=== PATIENT | female | born 1980 | race Caucasian/White ===

== ENCOUNTER 2016-04-27 17:28 | Observation (INO) ==
[2016-04-27] MEDS ORDERED: Aspirin 325 MG TABLET PO ONE (19:14)
--- NOTE | 2016-04-27 19:17 | Emergency Department Note ---
Disposition Clinical Impression: UTI (urinary tract infection), Foreign body in throat, Behavioral problem, Hypokalemia Disposition: Admitted As Inpatient Condition: Fair Referrals: NO,PCP [Non-Partnered Physician] - Forms: ED Satisfaction Letter, Work/School Release Time of Disposition: 23:23 General Adult HPI - General Chief complaint: ED Shortness of Breath/Dyspnea Stated complaint: breathing problems Time Seen by Provider: 04/27/16 19:10 Source: patient Mode of arrival: ambulatory Limitations: no limitations Nursing Notes Reviewed: Yes Vital Signs Reviewed: Yes - History of Present Illness HPI Narrative: This is a 35-year-old female who presents with congestion, shortness of breath, and anxiety. Patient is extremely anxious on exam and is crying. Patient states she does not know why she is anxious. Patient states she is having some pleuritic type chest pain last night but that is gone this morning. Patient states she went to work today and felt worse. Patient denies any alcohol or drug use. Patient denies chance of . Onset (ago): day(s) (1) Pain Scale: 6 - Related Data Home Medications Medication Instructions Recorded Confirmed Dextroamphetamine/Amphetamine 30 mg PO BID 01/04/15 01/04/15 [Adderall 30 mg Tablet] Escitalopram [Lexapro] 20 mg PO DAILY 01/04/15 01/04/15 Previous Rx's Medication Instructions Recorded Benzonatate [Tessalon] 200 mg PO TID PRN #14 capsule 03/20/16 Naproxen [Naprosyn] 500 mg PO BID PRN #20 tablet 03/20/16 Sulfamethoxazole/Trimeth DS 2 each PO BID #40 tablet 03/20/16 [Bactrim DS] Allergies Allergy/AdvReac Type Severity Reaction Status Date / Time No Known Allergies Allergy Verified 01/04/15 11:48 All systems ED: reviewed and negative except as stated. Constitutional: Denies: fever, chills, weakness, weight change Eyes: Denies: eye pain, eye discharge, vision change ENT ED: Reports: congestion. Denies: ear pain, throat pain, dental pain, hearing loss, epistaxis, dysphagia Cardiovascular: Reports: chest pain. Denies: palpitations, dyspnea on exertion , edema, syncope Respiratory: Reports: cough. Denies: dyspnea, wheezes, hemoptysis, stridor Gastrointestinal: Denies: abdominal pain, nausea, vomiting, diarrhea, constipation, hematemesis, melena, hematochezia Genitourinary: Denies: dysuria, frequency, hematuria, discharge Musculoskeletal: Reports: myalgia. Denies: back pain, neck pain, arthralgia Integumentary: Denies: rash, abrasion, lesions Neurological: Denies: headache, weakness, numbness, paresthesias, confusion, abnormal gait, vertigo Psychiatric: Denies: anxiety, depression, suicidal thoughts, homicidal thoughts , auditory hallucinations, visual hallucinations Endocrine: Denies: fatigue Hematological/Lymphatic: Denies: easy bleeding, easy bruising Allergic/Immunologic: Denies: facial swelling, urticaria Past Medical History - Past Medical History Attestation: Yes The following information was validated with the patient. Source: patient Medical history: Reports: other Surgical history: Reports: cholecystectomy Psychiatric history: Reports: anxiety, ADHD MEDICAL OFFICE REPRESENTATIVE history: Reports: bilateral tubal ligation - Social History Smoking Status: Current every day smoker Smokeless Tobacco Status: No Alcohol use: Reports: none Drug use: Reports: none Physical Exam - General Limitations: no limitations General appearance: alert, anxious - Head Head exam: atraumatic, normocephalic, normal inspection - Eye Eye exam: Present: normal appearance, PERRL, EOMI - ENT ENT exam: normal exam, normal oropharynx, mucous membranes moist - Expanded ENT Exam External ear exam: Present: normal external inspection Mouth exam: Present: normal external inspection Teeth exam: Present: normal inspection Throat exam: Present: normal inspection - Neck Neck exam: Present: normal inspection, full ROM, trachea midline - Chest Chest inspection: Present: normal inspection, symmetric chest wall rise - Respiratory Respiratory exam: Present: wheezes, other (rhonchi) - Cardiovascular Cardiovascular exam: Present: regular rate, normal rhythm, normal heart sounds - Abdominal Exam Abdominal exam: Present: soft, Non-Tender. Absent: tenderness, distention, guarding, rebound, rigidity - Extremities Exam Extremities exam: Present: normal inspection, full ROM. Absent: tenderness, pedal edema - Expanded Upper Extremity Exam Shoulder exam: Present: normal inspection, full ROM Arm exam: Present: normal inspection, full ROM Elbow exam: Present: normal inspection, full ROM Forearm/Wrist exam: Present: normal inspection, full ROM Hand exam: Present: normal inspection, full ROM Vascular exam: Normal: capillary refill, radial pulse - Expanded Lower Extremity Exam Hip/Pelvis exam: Present: normal inspection, full ROM Upper leg exam: Present: normal inspection, full ROM Knee exam: Present: normal inspection, full ROM Lower leg exam: Present: normal inspection, full ROM Ankle exam: Present: normal inspection, full ROM Foot/toe exam: Present: normal inspection, full ROM Neurovascular/Tendon exam: Absent: motor deficit, sensory deficit, tendon deficit - Back Exam Back exam: Present: normal inspection, full ROM. Absent: tenderness - Neurological Exam Neurological exam: Present: alert, oriented X3 - Expanded Neurological Exam Patient oriented to: Present: person, place, time Coma Scale Eye Opening: Spontaneous Coma Scale Motor Response: Obeys Commands Coma Scale Verbal Response: Oriented Coma Scale Total: 15 - Psychiatric Psychiatric exam: Present: anxious - Skin Skin exam: Present: warm, dry, intact, normal color Course - Reevaluation(s) Reevaluation #1: Patient on re-evaluation is very anxious and she states I have been rude to her even though I checked on patient more than once and offered her medication to calm her down as she is all over the room and still tearful and then yelling. I told her that she cannot leave that she has a foreign body in her throat that needs to be taken out and that I have to call endo about this. Time: 23:15 Reevaluation #2: Pt ran out of her room with the IV in place, security had to escort pt back to her room and talk to her. The charge nurse then spoke with pt and again stressed the risks of leaving and pt agreed to stay. Time: 23:35 - Consultations Consultation #1: I spoke with Dr. Snyder and he states admit patient to medicine and he will consult about the foreign body in her throat. Time: 23:20 Consultation #2: I spoke with Dr. Eduardo lawton to admit. Time: 00:20 Vital Signs Temperature 98 F 04/27/16 18:03 Pulse Rate 85 04/27/16 18:03 Respiratory Rate 20 04/27/16 18:03 Blood Pressure 138/111 04/27/16 18:03 O2 Sat by Pulse Oximetry 100 04/27/16 18:03 Temperature 98 F 04/27/16 18:03 Pulse Rate 100 04/27/16 23:38 Respiratory Rate 18 02/01/17 23:38 Blood Pressure 137/112 02/01/17 23:38 O2 Sat by Pulse Oximetry 96 04/27/16 23:38 Oxygen Delivery Oxygen Delivery Room Air Medical Decision Making - Medical Records Medical records reviewed: Yes I reviewed the patient's medical records. - Lab Data Lab results reviewed: Yes I reviewed the patient's lab results. Result diagrams: 04/27/16 19:30 04/27/16 19:30 Lab Results 04/27/16 04/27/16 04/27/16 Range/Units 19:30 19:30 19:30 WBC 17.6 H (4.3-11.1) K/mcL RBC 4.38 (3.82-4.97) M/mcL Hgb 14.7 (11.5-15.4) g/dL Hct 41.2 (35.3-44.9) % MCV 94.1 (83.0-100.0) fL MCH 33.6 H (28.0-33.3) pg MCHC 35.7 H (31.6-35.5) g/dL RDW 13.1 (11.5-14.5) % Plt Count 553 H (140-400) K/mcL MPV 9.1 L (9.4-12.4) fL Immature Gran % 0.5 (0-4) % Seg Neutrophils % 72.7 % Lymphocytes % 17.5 % Monocytes % 7.7 % Eosinophils % 1.1 % Basophils % 0.5 % Neutrophils # 12.8 H (1.6-8.9) K/mcL Lymphocytes # 3.1 (0.6-4.6) K/mcL Monocytes # 1.4 H (0.0-1.3) K/mcL Eosinophils # 0.2 (0.0-0.6) K/mcL Basophils # 0.1 (0.0-0.2) K/mcL D-Dimer 288 (0-500) ng/mLFEU Sodium 139 (136-145) mEq/L Potassium 2.7 L (3.5-4.5) mEq/L Chloride 105 (98-109) mEq/L Carbon Dioxide 16 L (19-29) mEq/L BUN 14 (7-20) mg/dL Creatinine 0.64 (0.57-1.11) mg/dL Est GFR ( Amer) > 60 (> 60) Est GFR (Non-Af Amer) > 60 (> 60) BUN/Creatinine Ratio 22 (6-26) Glucose 93 (70-99) mg/dL Calculated Osmolality 288 (280-300) Calcium 10.3 (8.6-10.8) mg/dL Total Bilirubin 1.5 H (0.2-1.2) mg/dL Direct Bilirubin 0.5 (0.0-0.5) mg/dL Indirect Bilirubin 1.0 (0.0-1.2) mg/dL AST 16 (5-34) Units/L ALT 14 (0-55) Units/L Alkaline Phosphatase 74 (38-126) Units/L Troponin I (0-0.03) ng/mL B-Natriuretic Peptide (0-100) pg/mL Serum Total Protein 8.0 (6.0-8.3) g/dL Albumin 4.5 (3.5-5.0) g/dL Globulin 3.5 (2.4-3.5) g/dL Albumin/Globulin Ratio 1.3 (1.1-2.2) Lipase 11 (8-78) Units/L TSH 0.153 L (0.350-4.840) mcIU/mL Serum , Qual (Negative) Urine Color (Yellow) Urine Clarity (Clear) Urine pH (5.0-8.0) pH Units Ur Specific [place] (1.010-1.025) Urine Protein (Neg-Trace) mg/dL Urine Glucose (UA) (Normal) mg/dL Urine Ketones (Negative) mg/dL Urine Blood (Negative) Urine Nitrite (Negative) Urine Bilirubin (Negative) Urine Urobilinogen (Normal) mg/dL Ur Leukocyte Esterase (Negative) Urine Microscopic RBC (0-3) per hpf Urine Microscopic WBC (0-3) per hpf Ur Squamous Epith Cells (None-Few) per lpf Urine Bacteria (None-Few) per hpf Hyaline Casts Ur Culture Indicated? (NO) Salicylates 6.4 L (15-30) mg/dL Urine Opiates Screen (Cinsmv=228) ng/mL Acetaminophen 11.0 (10-30) mcg/mL Ur Barbiturates Screen (Beammz=444) ng/mL Ur Phencyclidine Scrn (Cutoff=25) ng/mL Ur Amphetamines Screen (Jswaww=5071) ng/mL U Benzodiazepines Scrn (Mevmwz=271) ng/mL Urine Cocaine Screen (Cutoff= 300) ng/mL U Marijuana (THC) Screen (Cutoff = 50) ng/mL Ethyl Alcohol < 10 (0-10) mg/dL 04/27/16 04/27/16 04/27/16 Range/Units 19:30 19:30 19:30 WBC (4.3-11.1) K/mcL RBC (3.82-4.97) M/mcL Hgb (11.5-15.4) g/dL Hct (35.3-44.9) % MCV (83.0-100.0) fL MCH (28.0-33.3) pg MCHC (31.6-35.5) g/dL RDW (11.5-14.5) % Plt Count (140-400) K/mcL MPV (9.4-12.4) fL Immature Gran % (0-4) % Seg Neutrophils % % Lymphocytes % % Monocytes % % Eosinophils % % Basophils % % Neutrophils # (1.6-8.9) K/mcL Lymphocytes # (0.6-4.6) K/mcL Monocytes # (0.0-1.3) K/mcL Eosinophils # (0.0-0.6) K/mcL Basophils # (0.0-0.2) K/mcL D-Dimer (0-500) ng/mLFEU Sodium (136-145) mEq/L Potassium (3.5-4.5) mEq/L Chloride (98-109) mEq/L Carbon Dioxide (19-29) mEq/L BUN (7-20) mg/dL Creatinine (0.57-1.11) mg/dL Est GFR ( Amer) (> 60) Est GFR (Non-Af Amer) (> 60) BUN/Creatinine Ratio (6-26) Glucose (70-99) mg/dL Calculated Osmolality (280-300) Calcium (8.6-10.8) mg/dL Total Bilirubin (0.2-1.2) mg/dL Direct Bilirubin (0.0-0.5) mg/dL Indirect Bilirubin (0.0-1.2) mg/dL AST (5-34) Units/L ALT (0-55) Units/L Alkaline Phosphatase (38-126) Units/L Troponin I 0.00 (0-0.03) ng/mL B-Natriuretic Peptide < 10 (0-100) pg/mL Serum Total Protein (6.0-8.3) g/dL Albumin (3.5-5.0) g/dL Globulin (2.4-3.5) g/dL Albumin/Globulin Ratio (1.1-2.2) Lipase (8-78) Units/L TSH (0.350-4.840) mcIU/mL Serum , Qual Negative (Negative) Urine Color (Yellow) Urine Clarity (Clear) Urine pH (5.0-8.0) pH Units Ur Specific [place] (1.010-1.025) Urine Protein (Neg-Trace) mg/dL Urine Glucose (UA) (Normal) mg/dL Urine Ketones (Negative) mg/dL Urine Blood (Negative) Urine Nitrite (Negative) Urine Bilirubin (Negative) Urine Urobilinogen (Normal) mg/dL Ur Leukocyte Esterase (Negative) Urine Microscopic RBC (0-3) per hpf Urine Microscopic WBC (0-3) per hpf Ur Squamous Epith Cells (None-Few) per lpf Urine Bacteria (None-Few) per hpf Hyaline Casts Ur Culture Indicated? (NO) Salicylates (15-30) mg/dL Urine Opiates Screen (Fkxfig=532) ng/mL Acetaminophen (10-30) mcg/mL Ur Barbiturates Screen (Bvcbkd=922) ng/mL Ur Phencyclidine Scrn (Cutoff=25) ng/mL Ur Amphetamines Screen (Dksgej=8005) ng/mL U Benzodiazepines Scrn (Cthjik=319) ng/mL Urine Cocaine Screen (Cutoff= 300) ng/mL U Marijuana (THC) Screen (Cutoff = 50) ng/mL Ethyl Alcohol (0-10) mg/dL 04/27/16 04/27/16 Range/Units 21:00 21:00 WBC (4.3-11.1) K/mcL RBC (3.82-4.97) M/mcL Hgb (11.5-15.4) g/dL Hct (35.3-44.9) % MCV (83.0-100.0) fL MCH (28.0-33.3) pg MCHC (31.6-35.5) g/dL RDW (11.5-14.5) % Plt Count (140-400) K/mcL MPV (9.4-12.4) fL Immature Gran % (0-4) % Seg Neutrophils % % Lymphocytes % % Monocytes % % Eosinophils % % Basophils % % Neutrophils # (1.6-8.9) K/mcL Lymphocytes # (0.6-4.6) K/mcL Monocytes # (0.0-1.3) K/mcL Eosinophils # (0.0-0.6) K/mcL Basophils # (0.0-0.2) K/mcL D-Dimer (0-500) ng/mLFEU Sodium (136-145) mEq/L Potassium (3.5-4.5) mEq/L Chloride (98-109) mEq/L Carbon Dioxide (19-29) mEq/L BUN (7-20) mg/dL Creatinine (0.57-1.11) mg/dL Est GFR ( Amer) (> 60) Est GFR (Non-Af Amer) (> 60) BUN/Creatinine Ratio (6-26) Glucose (70-99) mg/dL Calculated Osmolality (280-300) Calcium (8.6-10.8) mg/dL Total Bilirubin (0.2-1.2) mg/dL Direct Bilirubin (0.0-0.5) mg/dL Indirect Bilirubin (0.0-1.2) mg/dL AST (5-34) Units/L ALT (0-55) Units/L Alkaline Phosphatase (38-126) Units/L Troponin I (0-0.03) ng/mL B-Natriuretic Peptide (0-100) pg/mL Serum Total Protein (6.0-8.3) g/dL Albumin (3.5-5.0) g/dL Globulin (2.4-3.5) g/dL Albumin/Globulin Ratio (1.1-2.2) Lipase (8-78) Units/L TSH (0.350-4.840) mcIU/mL Serum , Qual (Negative) Urine Color Dark Yellow (Yellow) Urine Clarity Cloudy A (Clear) Urine pH 6.5 (5.0-8.0) pH Units Ur Specific [place] > 1.030 H (1.010-1.025) Urine Protein 100 H (Neg-Trace) mg/dL Urine Glucose (UA) Normal (Normal) mg/dL Urine Ketones >=160 H (Negative) mg/dL Urine Blood Negative (Negative) Urine Nitrite Negative (Negative) Urine Bilirubin Small H (Negative) Urine Urobilinogen Normal (Normal) mg/dL Ur Leukocyte Esterase Small H (Negative) Urine Microscopic RBC 5-15 H (0-3) per hpf Urine Microscopic WBC 50-100 H (0-3) per hpf Ur Squamous Epith Cells Many H (None-Few) per lpf Urine Bacteria Moderate H (None-Few) per hpf Hyaline Casts Test Not Performed Ur Culture Indicated? YES A (NO) Salicylates (15-30) mg/dL Urine Opiates Screen Negative (Qsjmqq=033) ng/mL Acetaminophen (10-30) mcg/mL Ur Barbiturates Screen Negative (Dbfysl=983) ng/mL Ur Phencyclidine Scrn Negative (Cutoff=25) ng/mL Ur Amphetamines Screen Positive H (Miqfqv=6131) ng/mL U Benzodiazepines Scrn Negative (Ygjweu=742) ng/mL Urine Cocaine Screen Negative (Cutoff= 300) ng/mL U Marijuana (THC) Screen Negative (Cutoff = 50) ng/mL Ethyl Alcohol (0-10) mg/dL - Radiology Data Radiology results reviewed: Yes I reviewed the patient's radiology results. - EKG Data EKG #1 EKG attestation: Yes I reviewed and interpreted this EKG. EKG shows normal: sinus rhythm Rate: tachycardia (110) [place]/QRS: normal Interpretation: nonspecific ST-T wave changes
[2016-04-27 19:36] LABS: Basophils # 0.1 K/mcL (0.0-0.2); Basophils % 0.5 %; Eosinophils # 0.2 K/mcL (0.0-0.6); Eosinophils % 1.1 %; Hematocrit 41.2 % (35.3-44.9); Hemoglobin 14.7 g/dL (11.5-15.4); Immature Granulocytes % 0.5 % (0-4); Lymphocytes # 3.1 K/mcL (0.6-4.6); Lymphocytes % 17.5 %; Mean Corpuscular HGB Conc 35.7 g/dL (31.6-35.5); Mean Corpuscular Hemoglobin 33.6 pg (28.0-33.3); Mean Corpuscular Volume 94.1 fL (83.0-100.0); Mean Platelet Volume 9.1 fL (9.4-12.4); Monocytes # 1.4 K/mcL (0.0-1.3); Monocytes % 7.7 %; Neutrophils # 12.8 K/mcL (1.6-8.9); Platelet Count 553 K/mcL (140-400); Red Blood Count 4.38 M/mcL (3.82-4.97); Red Cell Distribution Width 13.1 % (11.5-14.5); Segmented Neutrophils % 72.7 %
[2016-04-27 19:51] LABS: Alanine Aminotransferase 14 Units/L (0-55); Albumin 4.5 g/dL (3.5-5.0); Albumin/Globulin Ratio 1.3 (1.1-2.2); Alkaline Phosphatase 74 Units/L (38-126); Aspartate Amino Transferase 16 Units/L (5-34); BUN/Creatinine Ratio 22 (6-26); Bilirubin,Direct 0.5 mg/dL (0.0-0.5); Bilirubin,Total 1.5 mg/dL (0.2-1.2); Blood Urea Nitrogen 14 mg/dL (7-20); Calcium 10.3 mg/dL (8.6-10.8); Carbon Dioxide 16 mEq/L (19-29); Chloride 105 mEq/L (98-109); Globulin 3.5 g/dL (2.4-3.5); Glucose 93 mg/dL (70-99); Lipase 11 Units/L (8-78); Osmolality,Calculated 288 (280-300); Potassium 2.7 mEq/L (3.5-4.5); Salicylate 6.4 mg/dL (15-30); Sodium 139 mEq/L (136-145); eGFR For African Americans > 60 (> 60); eGFR For Non-African Americans > 60 (> 60)
[2016-04-27 19:52] LABS: Ethanol < 10 mg/dL (0-10)
[2016-04-27 20:12] LABS: Thyroid Stimulating Hormone 0.153 mcIU/mL (0.350-4.840)
[2016-04-27] MEDS ORDERED: Potassium Chloride Elixir 20 MEQ/15 ML UDC PO ONE (21:08)
[2016-04-27 21:13] LABS: Bilirubin,Urine Small (Negative); Blood,Urine Negative (Negative); Clarity,Urine Cloudy (Clear); Color,Urine Dark Yellow (Yellow); Glucose,Urine (UA) Normal (Normal); Ketones,Urine >=160 mg/dL (Negative); Leukocyte Esterase,Urine Small (Negative); Nitrite,Urine Negative (Negative); PH,Urine 6.5 pH Units (5.0-8.0); Protein,Urine 100 mg/dL (Neg-Trace); Specific Gravity,Urine > 1.030 (1.010-1.025); Urobilinogen,Urine Normal (Normal)
[2016-04-27 21:17] LABS: Bacteria,Urine Moderate per hpf (None-Few); Squamous Epithelial Cell,Urine Many per lpf (None-Few); WBC,Urine 50-100 per hpf (0-3)
[2016-04-27 21:19] LABS: Amphetamine Screen,Urine Positive ng/mL (Cutoff=1000); Barbiturate Screen,Urine Negative ng/mL (Cutoff=200); Benzodiazepines Screen,Urine Negative ng/mL (Cutoff=200); Cannabinoid Screen,Urine Negative ng/mL (Cutoff = 50); Cocaine Screen,Urine Negative ng/mL (Cutoff= 300); Opiate Screen,Urine Negative ng/mL (Cutoff=300); Phencyclidine Screen,Urine Negative ng/mL (Cutoff=25)
[2016-04-28] MEDS ORDERED: *HR* LORazepam 2 MG/ML VIAL IVP ONE (00:06)
[2016-04-28] MEDS ORDERED: 0.9 % Sodium Chloride 1,000 ML ONE (00:17)
[2016-04-28] MEDS ORDERED: Acetaminophen 325 MG TABLET PO PRN (01:38)
[2016-04-28] MEDS ORDERED: methylPREDNISolone 125 MG/2 ML VIAL IVP STA (01:38)
[2016-04-28] MEDS ORDERED: Haloperidol Lactate 5 MG/ML VIAL IVP PRN (01:38)
[2016-04-28] MEDS ORDERED: Albuterol 2.5 MG/3 ML NEBULIZER IH PRN (01:38)
[2016-04-28] MEDS ORDERED: Naloxone 0.4 MG/ML INJ IVP PRN (01:38)
[2016-04-28] MEDS ORDERED: *HR* OxyCODONE Immed Rel 5 MG TABLET PO PRN (01:38)
[2016-04-28] MEDS ORDERED: *HR* HYDROmorphone (PF) 1 MG/ML SYRINGE IVP PRN (01:38)
[2016-04-28] MEDS ORDERED: *HR* Promethazine 25 MG/ML VIAL IVP PRN (01:38)
[2016-04-28] MEDS ORDERED: *HR* LORazepam 2 MG/ML VIAL IVP PRN (01:38)
[2016-04-28] MEDS ORDERED: 0.9 % Sodium Chloride 1,000 ML IVC SCH (01:45)
--- NOTE | 2016-04-28 01:52 | Internal Med History&Physical ---
Date of Encounter: 04/28/16 Time of Encounter: 01:30 Assessment and Plan (1) Pleuritic chest pain Status: Acute . (2) Reactive airway disease with acute exacerbation Status: Acute . (3) Pharyngitis Status: Acute . Qualifiers: Pharyngitis/tonsillitis etiology: unspecified etiology Qualified Code(s): J02.9 - Acute pharyngitis, unspecified (4) Chest pain, rule out acute myocardial infarction Status: Acute . (5) Chest pain with low risk of acute coronary syndrome Status: Acute . (6) Acute chest wall pain Status: Acute . (7) Foreign body in throat Status: Acute . Qualifiers: Encounter type: initial encounter Qualified Code(s): T17.208A - Unspecified foreign body in pharynx causing other injury, initial encounter (8) UTI (urinary tract infection) Status: Acute . Qualifiers: Urinary tract infection type: acute cystitis Hematuria presence: without hematuria Qualified Code(s): N30.00 - Acute cystitis without hematuria (9) CAP (community acquired pneumonia) Status: Acute . (10) ADD (attention deficit disorder) Status: Chronic . (11) SIRS (systemic inflammatory response syndrome) Status: Acute . (12) Abdominal pain Status: Acute . Qualifiers: Abdominal location: epigastric Qualified Code(s): R10.13 - Epigastric pain (13) Hypokalemia Status: Acute . Internal Medicine - H&P: HPI Chief complaint: Chest pain. Throat pain. Hoarseness. Admitted From: Emergency Dept Plans for Post Hospital Care: Home History of present illness: Ms. Raphael is a 35 year old female with history significant for ADD in adult, anxiety-depression/bipolar dis, DDD/DJD cervical spine/spondylosis/radicular pain, lumbago/LBP w/o sciatica, ?hemophilia carrier/?lupus hx, fibromyalgia synd , nicotine dependency The patient was visited and interviewed and examined. Patient was admitted to [facility] via the emergency department with a report of a foreign body sensation in her throat over the past week as if something was stuck in it. Associated with sore throat/ pain. No bleeding events noted. Symptoms include a sensation of head/chest congestion, nonproductive cough, shortness of breath, hoarseness and anxiety. Patient presented extremely anxious on exam and and crying in the emergency room. He could not explain reason for her to continue anxiety and worry. Dialysis will recall pain was rated as a 6/10 in severity. Night any associated fevers chills sweats acknowledged cough. Denies any audible wheezing or sputum production. Acknowledged sensitive diffuse myalgias and fatigue. Findings in the ED: Temperature 98 degrees pulse 85-100 respiration 18-20 BP 130 -138/112. O2 saturation 96-100% room air. WBC 17.6 hemoglobin 14.7 platelets 553,000. MCH 33.6 MCHC 35.7. MPV 9.1. Differential showed an increase in neutrophils and monocytes. D-dimer 288. Metabolic panel normal except potassium 2.7 carbon dioxide 16. BUN 14 creatinine 0.64. Hepatic function normal except bilirubin total 1.5 with direct 0.5. Lipase 11. TSH 0.153. Salicylate 6.4. Acetaminophen 11. Ethyl alcohol less than 10. Troponin 0.00 BNP less than 10. Urinalysis gravity greater than 1.03. Protein large. Ketones large. Bilirubin small. Leukocyte esterase small. 15 RBC. 100 WBC. Many squamous epithelial cells. Moderate bacteria. Urine tox screen positive for amphetamine. Chest x-ray demonstrates no acute active cardiopulmonary process. Soft tissue neck x-ray demonstrated findings suspicious for 7 mm x 2 mm for body (such as a swallowed bone) within the hypopharynx. EKG sinus tachycardia (110) nonspecific ST wave changes. No acute ischemic changes. Preliminary impression suggests upper respiratory tract infection associated with head congestion nonproductive cough and postnasal drainage and shortness of air. Symptoms are compounded by a sensation of foreign body in the throat with soft tissue neck suggesting a small bone fragment within the hypopharynx. Presentation further complicated by severe situational/generalized anxiety patient was noted to disorder and ADD in the adult and ongoing Adderall therapy. Systemic inflammatory response syndrome criteria present at admission. Given patient's presenting complaints and comorbidities she is at risk for acute clinical decline in the present setting. Workup and treatments will proceed comprehensively. Cumulative laboratory and radiographic data base was reviewed, considered and discussed. Pertinent ancillary medical records including ECW and PCI documentation was reviewed and considered. Given the patient's presenting concerns, past medical history, clinical findings and symptoms, she is admitted at this time will undergo further evaluation and disposition. Orders were written as per the computerized physician pit recorder system.......................................................................... .................... Consultative opinion and will be sought as clinical circumstances justify. Initial consultative request has been made to gastroenterology/endoscopy. Pain management needs will be addressed. Laboratory and radiographic data base will be updated as appropriate. Studies include: Cultures blood urine and sputum, PT/INR,APTT, cardiac injury panel, BNP, metabolic and hematologic panel, magnesium, phosphorus, ionized calcium, thyroid panel ,lipid profile, A1c, C-peptide, CRP, sed rate, respiratory infection profile, respiratory virus panel, blood gas, UA, UDS, lactic acid, serologies, etc. Precautions: Aspiration, fall, delirium protocol/surveillance initiated. Telemetry with continuous hemodynamic monitoring and pulse oximetry initiated. Empiric antibody coverage: Intravenous Rocephin and azithromycin pending culture data. Special studies: CTA chest, soft tissue neck x-ray, chest x-ray, telemetry, EKG. Pulmonary toilet: Incentive spirometry, aerosol bronchodilator, mucolytic, antitussive, supplemental oxygen. Corticosteroid therapyPRN. CPAP/BiPAP supplemental oxygen deliveryPRN. Aerosol Mucomyst therapyPRN. Fluid and electrolyte repletion efforts will proceed. Careful attention to fluid balance and renal recovery will be emphasized. Avoidance of nephrotoxic exposure and adverse drug drug interaction in the setting of impaired renal function will be monitored closely. Acute coronary syndrome protocol/surveillance initiated. DVT and PUD prophylaxis initiated: PPI therapy, intermittent pneumatic cuffs/ TEDs. Subq heparin/Lovenox. Early ambulation will be encouraged. Immunization updates recommended. Influenza and pneumococcal vaccinations as part of ongoing preventative healthcare recommendations strongly recommended. Smoking cessation counseling briefly addressed. Patient accepts nicotine substitute during this admission. Advanced care directive discussion briefly addressed. Patient does not declare any healthcare restrictions at this time. Cardiovascular risk appraisal and cardiovascular risk reduction efforts will be emphasized. Physical and occupational therapy may be consulted to evaluate/assess patient's functional capacity and progress mobility if circumstances justify. Nutrition/dietary education counseling may be considered as circumstances justify. Outpatient medication schedules will be reviewed, confirmed and facilitated as appropriate. Reconciliation of home treatments including adjustments, substitutions and reintroduction into the treatment regimen will address necessary maintenance therapies for chronic pre-existing medical conditions. Plan of care has been reviewed and discussed in detail with the patient. Questions addressed. Hospital course will be dependent upon clinical findings, treatment response and potential consultative interventions. Patient is at risk for further acute clinical decline due to her presenting chief complaints, findings and comorbid conditions. Condition is serious. Prognosis is cautiously optimistic. CODE STATUS is full. Past Med Surg Social Fam HX - Past Medical History Source: old records reviewed Medical history: arthritis (Degenerative disc disease of the spine. Cervical radicular pain. Spondylosis of cervical spine.), COPD (Recurrent pneumonia.), fibromyalgia, other (Endometriosis.) Psychiatric history: anxiety, ADHD, depression, other - Past Surgical History Surgical History: cholecystectomy, other (Fulguration of endometriosis.) - Social History Smoking Status: Current every day smoker Packs per day: 1 Smokeless Tobacco Status: No Alcohol use: none Drug use: none Occupational status: employed Current living situation: With Family Activity Level: Independent ambulation, Mostly sedentary Recent Out of Country Travel Within the Last 8 Weeks: No Exposure or Possible Exposure to Illness During Travel: No - Family History Paternal Grandfather Living Status: Hx Family Cancer: Yes Maternal Grandmother Living Status: Hx Family Cancer: Yes Internal Medicine - H&P: Meds Cephalexin [Keflex] 500 mg PO BID #10 capsule 04/28/16 [Rx] Dextroamphetamine/Amphetamine [Adderall 30 mg Tablet] 30 mg PO BID 04/28/16 [ History] Escitalopram [Lexapro] 15 mg PO DAILY 04/28/16 [History] Gabapentin 600 mg PO BID 04/28/16 [History] HydrOXYzine Pamoate 25 mg PO HS 04/28/16 [History] Pantoprazole Sodium [Protonix] 40 mg PO BID #60 tablet. 04/28/16 [Rx] Propranolol [Inderal] 20 mg PO BID 04/28/16 [History] Sucralfate [Carafate] 1 gm PO QIDAC #120 tablet 04/28/16 [Rx] Allergies No Known Allergies Allergy (Verified 01/04/15 11:48) All Systems PM: A 10-system review of systems was performed and is negative for pertinent findings except as documented above in the HPI. - Constitutional Constitutional: as per HPI, no chills, no fever(s), no night sweats - EENT Eyes: as per HPI, no change in vision, no discharge, no pain, no photophobia Ears: as per HPI, no ear discharge, no ear pain, no tinnitus Nose, mouth and throat: as per HPI, hoarseness, nasal congestion, odynophagia, post-nasal drip, sore throat, other, no dysphagia, no nasal discharge, no neck pain - Cardiovascular Cardiovascular ROS IM: as per HPI, other, no chest pain, no diaphoresis, no dyspnea, no lightheadedness, no palpitations, no syncope - Respiratory Respiratory: as per HPI, cough, dyspnea, pain on inspiration, chest congestion, pain with cough, other, no wheezing, no excessive phlegm production - Gastrointestinal Gastrointestinal: as per HPI, no abdominal pain, no diarrhea, no hematemesis, no hematochezia, no melena, no nausea, no vomiting - Genitourinary Genitourinary: as per HPI, no change in urinary stream, no dysuria, no flank pain, no hematuria - Musculoskeletal Musculoskeletal ROS IM: as per HPI, no numbness, no tingling - Integumentary Integumentary IM: as per HPI, no rash, no unusual bruising - Neurological Neurological ROS: as per HPI, no confusion, no convulsions, no focal weakness, no numbness, no tingling, no tremor(s) - Psychiatric Psychiatric: as per HPI, anxiety, other - Endocrine Endocrine IM: as per HPI - Hematologic/Lymphatic Hematologic/Lymphatic: as per HPI, no easy bruising - Allergic/Immunologic Allergic/Immunologic: as per HPI, other - Constitutional Vitals: Temp Pulse Resp BP Pulse Ox 97.5 F L 93 14 132/83 99 04/28/16 01:43 04/28/16 01:43 04/28/16 01:43 04/28/16 01:43 04/28/16 01:43 General appearance: Present: mild distress, A&O X 3, answers questions appropriately - Head Head exam: Present: atraumatic, normocephalic - Eye Eye exam: Present: EOMI, PERRL, conjuntiva pink, sclera anicteric Pupils: Present: normal accommodation, PERRL - ENT ENT exam: Present: mucous membranes moist, normal oropharynx - Neck Neck exam general surgery: Present: full ROM, supple, trachea midline. Absent: lymphadenopathy - Respiratory Respiratory exam: Present: chest wall tenderness, decreased breath sounds, rhonchi, wheezes. Absent: accessory muscle use, rales - Cardiovascular Cardiovascular exam: Present: distant heart sounds, RRR, +S1, +S2. Absent: diastolic murmur, gallop, rubs, systolic murmur - GI/Abdominal GI/Abdominal exam: Present: normal bowel sounds, soft, no peritoneal signs. Absent: distended, tenderness - Extremities Exam Extremities exam: Present: full ROM, warm, radial pulses palpable and symetrical. Absent: calf tenderness, cyanotic, pedal edema - Neurological Exam Neurological exam: Present: alert, CN II-XII intact, oriented X3, no focal deficits. Absent: pronater drift, facial droop, speech deficit - Psychiatric Psychiatric exam: Present: anxious, normal affect, normal mood - Skin Skin exam: Present: dry, intact, warm Internal Med - H&P Results - Labs CBC & Chem 7: 04/28/16 04:48 04/28/16 04:48 - Impressions Vital Signs Temp Pulse Resp BP Pulse Ox 04/28/16 01:43 97.5 F L 93 14 132/83 99 04/28/16 00:48 0 145/92 04/28/16 00:25 107 16 111/91 99 04/27/16 23:38 100 18 137/112 96 04/27/16 22:28 85 16 141/95 96 04/27/16 21:29 96 12 149/114 96 04/27/16 20:43 95 13 135/105 100 04/27/16 18:03 98 F 85 20 138/111 100 Intake and Output 04/27/16 04/27/16 04/28/16 15:59 23:59 07:59 Intake Total 0 / 0 Output Total 0 / 0 Balance 0 / 0 Intake: Oral 0 / 0 Output: Urine 0 / 0 Other: Weight 58.967 kg 58.967 kg Patient Weight 04/28/16 23:59 Weight 58.967 kg Short CBC 04/27/16 Range/Units 19:30 WBC 17.6 H (4.3-11.1) K/mcL Hgb 14.7 (11.5-15.4) g/dL Hct 41.2 (35.3-44.9) % Plt Count 553 H (140-400) K/mcL Neutrophils # 12.8 H (1.6-8.9) K/mcL BMP 04/27/16 Range/Units 19:30 Sodium 139 (136-145) mEq/L Potassium 2.7 L (3.5-4.5) mEq/L Chloride 105 (98-109) mEq/L Carbon Dioxide 16 L (19-29) mEq/L BUN 14 (7-20) mg/dL Creatinine 0.64 (0.57-1.11) mg/dL Glucose 93 (70-99) mg/dL Calcium 10.3 (8.6-10.8) mg/dL Cardiac Enzymes 04/27/16 Range/Units 19:30 Troponin I 0.00 (0-0.03) ng/mL Liver Function 04/27/16 Range/Units 19:30 Total Bilirubin 1.5 H (0.2-1.2) mg/dL Direct Bilirubin 0.5 (0.0-0.5) mg/dL AST 16 (5-34) Units/L ALT 14 (0-55) Units/L Alkaline Phosphatase 74 (38-126) Units/L Albumin 4.5 (3.5-5.0) g/dL Urine 04/27/16 Range/Units 21:00 Urine Color Dark Yellow (Yellow) Urine Clarity Cloudy A (Clear) Urine pH 6.5 (5.0-8.0) pH Units Ur Specific [place] > 1.030 H (1.010-1.025) Urine Protein 100 H (Neg-Trace) mg/dL Urine Glucose (UA) Normal (Normal) mg/dL Abnormal lab results WBC 17.6 K/mcL (4.3-11.1) H 04/27/16 19:30 MCH 33.6 pg (28.0-33.3) H 04/27/16 19:30 MCHC 35.7 g/dL (31.6-35.5) H 04/27/16 19:30 Plt Count 553 K/mcL (140-400) H 04/27/16 19:30 MPV 9.1 fL (9.4-12.4) L 04/27/16 19:30 Neutrophils # 12.8 K/mcL (1.6-8.9) H 04/27/16 19:30 Monocytes # 1.4 K/mcL (0.0-1.3) H 04/27/16 19:30 Potassium 2.7 mEq/L (3.5-4.5) L 04/27/16 19:30 Carbon Dioxide 16 mEq/L (19-29) L 04/27/16 19:30 Total Bilirubin 1.5 mg/dL (0.2-1.2) H 04/27/16 19:30 TSH 0.153 mcIU/mL (0.350-4.840) L 04/27/16 19:30 Urine Clarity Cloudy (Clear) A 04/27/16 21:00 Ur Specific [place] > 1.030 (1.010-1.025) H 04/27/16 21:00 Urine Protein 100 mg/dL (Neg-Trace) H 04/27/16 21:00 Urine Ketones >=160 mg/dL (Negative) H 04/27/16 21:00 Urine Bilirubin Small (Negative) H 04/27/16 21:00 Ur Leukocyte Esterase Small (Negative) H 04/27/16 21:00 Urine Microscopic RBC 5-15 per hpf (0-3) H 04/27/16 21:00 Urine Microscopic WBC 50-100 per hpf (0-3) H 04/27/16 21:00 Ur Squamous Epith Cells Many per lpf (None-Few) H 04/27/16 21:00 Urine Bacteria Moderate per hpf (None-Few) H 04/27/16 21:00 Ur Culture Indicated? YES (NO) A 04/27/16 21:00 Salicylates 6.4 mg/dL (15-30) L 04/27/16 19:30 Ur Amphetamines Screen Positive ng/mL (Vpultc=2634) H 04/27/16 21:00 Allergies Allergy/AdvReac Type Severity Reaction Status Date / Time No Known Allergies Allergy Verified 01/04/15 11:48 Laboratory Results WBC 17.6 K/mcL (4.3-11.1) H 04/27/16 19:30 RBC 4.38 M/mcL (3.82-4.97) 04/27/16 19:30 Hgb 14.7 g/dL (11.5-15.4) 04/27/16 19:30 Hct 41.2 % (35.3-44.9) 04/27/16 19: MCV 94.1 fL (83.0-100.0) 04/27/16 19:30 MCH 33.6 pg (28.0-33.3) H 04/27/16 19:30 MCHC 35.7 g/dL (31.6-35.5) H 04/27/16 19:30 RDW 13.1 % (11.5-14.5) 04/27/16 19:30 Plt Count 553 K/mcL (140-400) H 04/27/16 19: MPV 9.1 fL (9.4-12.4) L 04/27/16 19: Immature Gran % 0.5 % (0-4) 04/27/16 19: Seg Neutrophils % 72.7 % 04/27/16 19:30 Lymphocytes % 17.5 % 04/27/16 19: Monocytes % 7.7 % 04/27/16 19:30 Eosinophils % 1.1 % 04/27/16: Basophils % 0.5 % 04/27/16 19:30 Neutrophils # 12.8 K/mcL (1.6-8.9) H 04/27/16 19:30 Lymphocytes # 3.1 K/mcL (0.6-4.6) 04/27/16 19:30 Monocytes # 1.4 K/mcL (0.0-1.3) H 04/27/16 19:30 Eosinophils # 0.2 K/mcL (0.0-0.6) 04/27/16 19:30 Basophils # 0.1 K/mcL (0.0-0.2) 04/27/16 19:30 D-Dimer 288 ng/mLFEU (0-500) 04/27/16 19:30 Sodium 139 mEq/L (136-145) 04/27/16 19:30 Potassium 2.7 mEq/L (3.5-4.5) L 04/27/16 19:30 Chloride 105 mEq/L (98-109) 04/27/16 19: Carbon Dioxide 16 mEq/L (19-29) L 04/27/16 19:30 BUN 14 mg/dL (7-20) 04/27/16 19:30 Creatinine 0.64 mg/dL (0.57-1.11) 04/27/16 19:30 Est GFR ( Amer) > 60 (> 60) 04/27/16 19:30 Est GFR (Non-Af Amer) > 60 (> 60) 04/27/16 19:30 BUN/Creatinine Ratio 22 (6-26) 04/27/16 19: Glucose 93 mg/dL (70-99) 04/27/16 19:30 Calculated Osmolality 288 (280-300) 04/27/16: Calcium 10.3 mg/dL (8.6-10.8) 04/27/16:30 Total Bilirubin 1.5 mg/dL (0.2-1.2) H 04/27/16 19:30 Direct Bilirubin 0.5 mg/dL (0.0-0.5) 04/27/16 19: Indirect Bilirubin 1.0 mg/dL (0.0-1.2) 04/27/16 19:30 AST 16 Units/L (5-34) 04/27/16 19:30 ALT 14 Units/L (0-55) 04/27/16:30 Alkaline Phosphatase 74 Units/L (38-126) 04/27/16 19:30 Troponin I 0.00 ng/mL (0-0.03) 04/27/16 19:30 B-Natriuretic Peptide < 10 pg/mL (0-100) 04/27/16 19:30 Serum Total Protein 8.0 g/dL (6.0-8.3) 04/27/16 19:30 Albumin 4.5 g/dL (3.5-5.0) 04/27/16 19:30 Globulin 3.5 g/dL (2.4-3.5) 04/27/16 19: Albumin/Globulin Ratio 1.3 (1.1-2.2) 04/27/16 19:30 Lipase 11 Units/L (8-78) 04/27/16 19:30 TSH 0.153 mcIU/mL (0.350-4.840) L 04/27/16 19:30 Serum , Qual Negative (Negative) 04/27/16 19:30 Urine Color Dark Yellow (Yellow) 04/27/16 21:00 Urine Clarity Cloudy (Clear) A 04/27/16 21:00 Urine pH 6.5 pH Units (5.0-8.0) 04/27/16 21:00 Ur Specific [place] > 1.030 (1.010-1.025) H 04/27/16 21:00 Urine Protein 100 mg/dL (Neg-Trace) H 04/27/16 21:00 Urine Glucose (UA) Normal mg/dL (Normal) 04/27/16 21:00 Urine Ketones >=160 mg/dL (Negative) H 04/27/16 21:00 Urine Blood Negative (Negative) 04/27/16 21:00 Urine Nitrite Negative (Negative) 04/27/16 21:00 Urine Bilirubin Small (Negative) H 04/27/16 21:00 Urine Urobilinogen Normal mg/dL (Normal) 04/27/16 21:00 Ur Leukocyte Esterase Small (Negative) H 04/27/16 21:00 Urine Microscopic RBC 5-15 per hpf (0-3) H 04/27/16 21:00 Urine Microscopic WBC 50-100 per hpf (0-3) H 04/27/16 21:00 Ur Squamous Epith Cells Many per lpf (None-Few) H 04/27/16 21:00 Urine Bacteria Moderate per hpf (None-Few) H 04/27/16 21:00 Hyaline Casts Test Not Performed 04/27/16 21:00 Ur Culture Indicated? YES (NO) A 04/27/16 21:00 Salicylates 6.4 mg/dL (15-30) L 04/27/16 19:30 Urine Opiates Screen Negative ng/mL (Yygfyc=674) 04/27/16 21:00 Acetaminophen 11.0 mcg/mL (10-30) 04/27/16 19:30 Ur Barbiturates Screen Negative ng/mL (Fcgnyz=909) 04/27/16 21:00 Ur Phencyclidine Scrn Negative ng/mL (Cutoff=25) 04/27/16 21:00 Ur Amphetamines Screen Positive ng/mL (Lwpnch=8244) H 04/27/16 21:00 U Benzodiazepines Scrn Negative ng/mL (Hskfep=645) 04/27/16 21:00 Urine Cocaine Screen Negative ng/mL (Cutoff= 300) 04/27/16 21:00 U Marijuana (THC) Screen Negative ng/mL (Cutoff = 50) 04/27/16 21:00 Ethyl Alcohol < 10 mg/dL (0-10) 04/27/16 19:30 Impressions Chest X-Ray 04/27/16 19:13 IMPRESSION: No evidence of acute cardiopulmonary disease. D/ / Eladio De Souza MD / Eladio De Souza MD Interpreting Provider: Eladio De Souza MD Soft Tissue Neck X-Ray 04/27/16 22:39 IMPRESSION: Findings suspicious for 7 mm x 2 mm foreign body such as a swallowed bone within the hypopharynx D/ / Eladio De Souza MD / Eladio De Souza MD Interpreting Provider: Eladio De Souza MD
[2016-04-28 04:58] LABS: VBG HCO3 18.2 mEq/L (21-27); VBG PH 7.39 pH Units (7.32-7.42)
[2016-04-28] MEDS: Ipratropium/Albuterol Neb 3 ML IH SCH ×3 (04:58→16:22)
[2016-04-28 05:03] LABS: Hematocrit 37.3 % (35.3-44.9); Mean Corpuscular HGB Conc 34.9 g/dL (31.6-35.5); Mean Corpuscular Hemoglobin 33.2 pg (28.0-33.3); Mean Corpuscular Volume 95.2 fL (83.0-100.0); Mean Platelet Volume 9.3 fL (9.4-12.4); Platelet Count 486 K/mcL (140-400); Red Blood Count 3.92 M/mcL (3.82-4.97)
[2016-04-28 05:16] LABS: Hemoglobin A1C 4.3 %
[2016-04-28 05:23] LABS: Alanine Aminotransferase 11 Units/L (0-55); Albumin 3.7 g/dL (3.5-5.0); Albumin/Globulin Ratio 1.2 (1.1-2.2); Alkaline Phosphatase 62 Units/L (38-126); Aspartate Amino Transferase 13 Units/L (5-34); BUN/Creatinine Ratio 21 (6-26); Bilirubin,Total 1.1 mg/dL (0.2-1.2); Blood Urea Nitrogen 12 mg/dL (7-20); Calcium 8.8 mg/dL (8.6-10.8); Carbon Dioxide 16 mEq/L (19-29); Chloride 112 mEq/L (98-109); Chol/HDL Ratio 3.2 (0-4.9); Cholesterol 156 mg/dL (< 200); Glucose 105 mg/dL (70-99); HDL Cholesterol 49 mg/dL (40-59); LDL Cholesterol,Calculated 81 mg/dL (0-99); Osmolality,Calculated 286 (280-300); Phosphorous 1.9 mg/dL (2.3-4.7); Potassium 3.2 mEq/L (3.5-4.5); Sodium 138 mEq/L (136-145); Total Protein 6.7 g/dL (6.0-8.3); Triglycerides 128 mg/dL (< 150); eGFR For African Americans > 60 (> 60); eGFR For Non-African Americans > 60 (> 60)
[2016-04-28 05:35] LABS: Thyroid Stimulating Hormone 0.199 mcIU/mL (0.350-4.840); Triiodothyronine (T3) Free 2.01 pg/mL (1.71-3.71)
[2016-04-28] MEDS ORDERED: *HR* Enoxaparin 40 MG/0.4 ML SYRINGE SQ SCH (07:00)
[2016-04-28] MEDS ORDERED: (Adderall 30 Mg Tablet) PO SCH (09:00)
[2016-04-28] MEDS ORDERED: Famotidine 20 MG TABLET PO SCH (09:00)
[2016-04-28] MEDS ORDERED: Nicotine 21 MG PATCH.TD24 TD SCH (09:00)
[2016-04-28] MEDS ORDERED: predniSONE 20 MG TABLET PO SCH (09:00)
--- NOTE | 2016-04-28 11:12 | Gastroenterology Consult Note ---
<Martín Sanders Wilton - Last Filed: 04/28/16 11:09> Date of Encounter: 04/28/16 Time of Encounter: 10:30 - Assessment and plan (1) Foreign body in throat Current Visit: Yes Status: Acute Assessment and plan: Plan for EGD for possible foreign body removal. Keep pt NPO. Qualifiers: Encounter type: initial encounter Qualified Code(s): T17.208A - Unspecified foreign body in pharynx causing other injury, initial encounter - Time Spent With Patient Total time spent is greater than 50% in coordination of care (as documented) at patient's floor/unit and/or counseling patient: GI History of Present Illness - Data of Consult Patient: new to practice Consult date: 04/28/16 Requesting Physician: Moni Mckeon MD - Consult Narrative Reason for consult: Foreign body in throat History of present illness: Ms. Raphael is a 35 year old female with PMHx of cervical spondylosis, fibromyalgia who presented to the ED with SOB, feeling of something stuck in her throat, and anxiety. CXR was negative. XR neck with findings suspicious for 7 mm x 2 mm foreign body, possible swallowed bone within hypopharynx. We were consulted for foreign body removal. She reports occasional diarrhea and denies melena or hematochezia. She denies dysphagia. Procedures: Colonoscopy 07/30/2009 Dr. Hameed with moderate architectural distortion of glands. Acute and chronic inflammation, several crypt abscesses, possible chronic IBD. NSAIDs: None Anticoagulation: None Past Med Surg Social Fam HX - Past Medical History Medical history: arthritis (Degenerative disc disease of the spine. Cervical radicular pain. Spondylosis of cervical spine.), COPD (Recurrent pneumonia.), fibromyalgia, other (Endometriosis.) Psychiatric history: anxiety, ADHD, other - Past Surgical History Surgical History: cholecystectomy, other (Fulguration of endometriosis.) - Social History Smoking Status: Current every day smoker Packs per day: 1 Smokeless Tobacco Status: No Alcohol use: none Drug use: none - Family History Paternal Grandfather Living Status: Hx Family Cancer: Yes Maternal Grandmother Living Status: Hx Family Cancer: Yes - Gastrointestinal Gastrointestinal: Present: as per HPI - Constitutional Constitutional: as per HPI - EENT Eyes: as per HPI Ears: Present: as per HPI Nose, mouth and throat: Present: as per HPI - Cardiovascular Cardiovascular ROS: Present: as per HPI - Respiratory Respiratory IM: Present: as per HPI - Genitourinary Genitourinary: Absent: change in color, Urinary frequency - Neurological ROS Neurological GI: Present: as per HPI - Hematologic/Lymphatic Hematologic/Lymphatic pediatric: Present: as per HPI - Musculoskeletal Musculoskeletal ROS GI: Present: as per HPI - Integumentary Integumentary GI: Present: as per HPI - Psychiatric ROS Psychiatric GI: Present: as per HPI - Endocrine Endocrine IM: Present: as per HPI - Constitutional Vitals: Temp Pulse Resp BP Pulse Ox 97.3 F L 88 18 132/96 98 04/28/16 08:13 04/28/16 08:13 04/28/16 08:13 04/28/16 08:13 04/28/16 08:13 General appearance: Present: cooperative, A&O X 3, no acute distress, answers questions appropriately - Head Head exam: Present: atraumatic, normocephalic - Eye Eye exam: Present: normal appearance, sclera anicteric - ENT ENT exam: Present: mucous membranes dry - Neck Neck exam general surgery: Present: normal inspection, trachea midline - Respiratory Respiratory exam: Present: CTAB. Absent: rales, rhonchi - Cardiovascular Cardiovascular exam: Present: RRR, +S1, +S2 - GI/Abdominal GI/Abdominal exam: Present: soft, no peritoneal signs. Absent: distended, firm , guarding, tenderness - Rectal Rectal exam: Present: deferred - Extremities Exam Extremities exam: Present: warm - Neurological Exam Neurological exam: Present: no focal deficits - Psychiatric Psychiatric exam: Present: normal affect, normal mood - Skin Skin exam: Present: dry, intact, normal color, warm Results - Labs CBC & Chem 7: 04/28/16 04:48 04/28/16 04:48 Labs: Last Result Calcium 8.8 mg/dL (8.6-10.8) 04/28/16 04:48 Troponin I 0.00 ng/mL (0-0.03) 04/28/16 10:25 C-Reactive Protein 6 mg/L (Less than 5) H 04/28/16 04:48 Triglycerides 128 mg/dL (< 150) 04/28/16 04:48 Salicylates 6.4 mg/dL (15-30) L 04/27/16 19:30 Urine Opiates Screen Negative ng/mL (Dztosa=134) 04/27/16 21:00 Entire Visit Hgb 13.0 g/dL (11.5-15.4) D 04/28/16 04:48 Hct 37.3 % (35.3-44.9) 04/28/16 04:48 Total Bilirubin 1.1 mg/dL (0.2-1.2) 04/28/16 04:48 AST 13 Units/L (5-34) 04/28/16 04:48 ALT 11 Units/L (0-55) 04/28/16 04:48 Lipase 11 Units/L (8-78) 04/27/16 19:30 Acetaminophen 11.0 mcg/mL (10-30) 04/27/16 19:30 - ABG ABG results: PT/INR, D-dimer D-Dimer 288 ng/mLFEU (0-500) 04/27/16 19:30 - Impressions Impressions Chest CTA 04/28/16 01:38 IMPRESSION: No evidence of pulmonary embolism. Small amount of right lower lobe faint airspace disease, possibly due to pneumonia D/ / Eladio De Souza MD / Eladio De Souza MD Interpreting Provider: Eladio De Souza MD Consult Discharge Plan - Plan Instructions: Chest Pain (DC) Referrals: Lizette Quintero CNP [Primary Care Provider] - (1-2 weeks) Grace Snyder MD [Partnered Physician] - (In 1 to 2 weeks) Prescriptions: Cephalexin [Keflex] 500 mg PO BID #10 capsule Pantoprazole Sodium [Protonix] 40 mg PO BID #60 tablet. Sucralfate [Carafate] 1 gm PO QIDAC #120 tablet <Grace Snyder - Last Filed: 04/28/16 17:31> Date of Encounter: 04/28/16 Time of Encounter: 13:00 - Time Spent With Patient Total time spent is greater than 50% in coordination of care (as documented) at patient's floor/unit and/or counseling patient: GI History of Present Illness - Data of Consult Requesting Physician: Moni Mckeon MD - Consult Narrative History of present illness: Ms. Raphael is a 35 year old female - Constitutional Vitals: Temp Pulse Resp BP Pulse Ox 97.6 F 106 16 120/80 100 04/28/16 15:17 04/28/16 15:17 04/28/16 15:17 04/28/16 15:17 04/28/16 15:17 Results - Labs CBC & Chem 7: 04/28/16 04:48 04/28/16 04:48 Labs: Last Result Calcium 8.8 mg/dL (8.6-10.8) 04/28/16 04:48 Troponin I 0.00 ng/mL (0-0.03) 04/28/16 16:34 C-Reactive Protein 6 mg/L (Less than 5) H 04/28/16 04:48 Triglycerides 128 mg/dL (< 150) 04/28/16 04:48 Salicylates 6.4 mg/dL (15-30) L 04/27/16 19:30 Urine Opiates Screen Negative ng/mL ([id number]) 04/27/16 21:00 Entire Visit Hgb 13.0 g/dL (11.5-15.4) D 04/28/16 04:48 Hct 37.3 % (35.3-44.9) 04/28/16 04:48 Total Bilirubin 1.1 mg/dL (0.2-1.2) 04/28/16 04:48 AST 13 Units/L (5-34) 04/28/16 04:48 ALT 11 Units/L (0-55) 04/28/16 04:48 Lipase 11 Units/L (8-78) 04/27/16 19:30 Acetaminophen 11.0 mcg/mL (10-30) 04/27/16 19:30 - ABG ABG results: PT/INR, D-dimer D-Dimer 288 ng/mLFEU (0-500) 04/27/16 19:30 - Impressions Impressions Chest CTA 04/28/16 01:38 IMPRESSION: No evidence of pulmonary embolism. Small amount of right lower lobe faint airspace disease, possibly due to pneumonia D/ / Eladio De Souza MD / Eladio De Souza MD Interpreting Provider: Eladio De Souza MD - Attending Attestation I examined this patient and my medical decision-making was reviewed with the HORTICULTURAL SERVICES SUPERVISOR/PA/Advanced Practice Nurse/Resident Physician. I agree with the documented findings, disposition and treatment plan as described except to the extent set forth below.
--- NOTE | 2016-04-28 13:13 | Anesthesia Evaluation PreOp ---
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) Pulmonary History: Smoker (1/2 ppd) CONFERENCE SPECIALIST History: Other (Anxiety/Depression) Other Medical History: Other (Fibromyalgia, Ce rvical DDD) Anesthesia History: No Prior Anesthetic Complications, Past Anesthesia : No Test: Negative (04/27/2016) Alcohol Use: none Drug use: none Medications and Allergies Dextroamphetamine/Amphetamine [Adderall 30 mg Tablet] 30 mg PO BID 04/28/16 [ History] Escitalopram [Lexapro] 15 mg PO DAILY 04/28/16 [History] Gabapentin [Gabapentin] 600 mg PO BID 04/28/16 [History] HydrOXYzine Pamoate [HydrOXYzine Pamoate] 25 mg PO HS 04/28/16 [History] Propranolol [Inderal] 20 mg PO BID 04/28/16 [History] Allergies No Known Allergies Allergy (Verified 01/04/15 11:48) - Meds/Allergy Pre-op Review Medications Reviewed: Yes Allergies Reviewed: Yes Beta Blockers on Current Med List: No Anesthesia Results - Labs 04/28/16 04:48 04/28/16 04:48 Anesthesia Exam O2 Sat Height 1.57 m Height 1.57 m Height 1.57 m Weight 58.967 kg Weight 58.967 kg Weight 58.967 kg O2 Sat by Pulse Oximetry 100 O2 Sat by Pulse Oximetry 100 O2 Sat by Pulse Oximetry 98 O2 Sat by Pulse Oximetry 99 O2 Sat by Pulse Oximetry 100 O2 Sat by Pulse Oximetry 99 O2 Sat by Pulse Oximetry 99 O2 Sat by Pulse Oximetry 99 O2 Sat by Pulse Oximetry 96 O2 Sat by Pulse Oximetry 96 O2 Sat by Pulse Oximetry 96 O2 Sat by Pulse Oximetry 100 O2 Sat by Pulse Oximetry 100 Vital Signs Temp Pulse Resp BP Pulse Ox 98 F 85 20 138/111 100 04/27/16 18:03 04/27/16 18:03 04/27/16 18:03 04/27/16 18:03 04/27/16 18:03 Vital Signs/O2 Sat, Most Current Temp Pulse Resp BP Pulse Ox 98.0 F 72 12 143/81 100 04/28/16 11:26 04/28/16 13:12 04/28/16 13:12 04/28/16 13:12 04/28/16 13:12 Height: 5'2'' Weight: 130# NPO (# of Hours): > 8 hrs Pain Scale: 0 Pain Scale Used: Numeric (1 - 10) - HEENT Pupil (Motor): Pupils equal, EOMI Mallampati: II Teeth: Normal Oral Opening: Greater than 3 - CONFERENCE SPECIALIST LOC: Oriented CONFERENCE SPECIALIST Motor: Normal RUE, Normal LUE, Normal RLE, Normal LLE, Normal Face CONFERENCE SPECIALIST Sensory: Normal: RUE, LUE, RLE, LLE, Face - Cardiac Rhythm: Regular Murmur: None JVD: No Carotid Bruit: No - Pulmonary Breath Sounds: bilateral Clear Respiratory Effort: Symmetrical Anesthesia Assess/Plan ASA Score: 2 Modified [place] Scale for Level of Consciousness: Cooperative, oriented, and tranquil Anesthetic Plan: General Autologous Blood: Yes Monitoring Plan: Standard Monitors Recovery Plan: Other
--- NOTE | 2016-04-28 13:25 | Anesthesia Evaluation PreOp ---
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: Other (ADHD) Anesthesia History: No Prior Anesthetic Complications, Past Anesthesia : No Test: Negative (04/27/2016) Alcohol Use: none Drug use: none Medications and Allergies Dextroamphetamine/Amphetamine [Adderall 30 mg Tablet] 30 mg PO BID 04/28/16 [ History] Escitalopram [Lexapro] 15 mg PO DAILY 04/28/16 [History] Gabapentin [Gabapentin] 600 mg PO BID 04/28/16 [History] HydrOXYzine Pamoate [HydrOXYzine Pamoate] 25 mg PO HS 04/28/16 [History] Propranolol [Inderal] 20 mg PO BID 04/28/16 [History] Allergies No Known Allergies Allergy (Verified 01/04/15 11:48) - Meds/Allergy Pre-op Review Medications Reviewed: Yes Allergies Reviewed: Yes Beta Blockers on Current Med List: No Anesthesia Results - Labs 04/28/16 04:48 04/28/16 04:48 Anesthesia Exam O2 Sat Height 1.57 m Height 1.57 m Height 1.57 m Weight 58.967 kg Weight 58.967 kg Weight 58.967 kg O2 Sat by Pulse Oximetry 100 O2 Sat by Pulse Oximetry 100 O2 Sat by Pulse Oximetry 98 O2 Sat by Pulse Oximetry 99 O2 Sat by Pulse Oximetry 100 O2 Sat by Pulse Oximetry 99 O2 Sat by Pulse Oximetry 99 O2 Sat by Pulse Oximetry 99 O2 Sat by Pulse Oximetry 96 O2 Sat by Pulse Oximetry 96 O2 Sat by Pulse Oximetry 96 O2 Sat by Pulse Oximetry 100 O2 Sat by Pulse Oximetry 100 Vital Signs Temp Pulse Resp BP Pulse Ox 98 F 85 20 138/111 100 04/27/16 18:03 04/27/16 18:03 04/27/16 18:03 04/27/16 18:03 04/27/16 18:03 Vital Signs/O2 Sat, Most Current Temp Pulse Resp BP Pulse Ox 98.0 F 72 12 143/81 100 04/28/16 11:26 04/28/16 13:12 04/28/16 13:12 04/28/16 13:12 04/28/16 13:12 Height: 5'2'' Weight: 130# NPO (# of Hours): > 8 hrs Pain Scale: 0 Pain Scale Used: Numeric (1 - 10) - HEENT Pupil (Motor): Pupils equal, EOMI Mallampati: III Teeth: Normal Oral Opening: Greater than 3 - CASING FINISHER AND STUFFER LOC: Oriented CASING FINISHER AND STUFFER Motor: Normal RUE, Normal LUE, Normal RLE, Normal LLE, Normal Face CASING FINISHER AND STUFFER Sensory: Normal: RUE, LUE, RLE, LLE, Face - Cardiac Rhythm: Regular Murmur: None JVD: No Carotid Bruit: No Anesthesia Assess/Plan ASA Score: 3 Modified [place] Scale for Level of Consciousness: Cooperative, oriented, and tranquil Anesthetic Plan: General Autologous Blood: Yes Monitoring Plan: Standard Monitors
--- NOTE | 2016-04-28 14:53 | Internal Med History&Physical ---
Date of Encounter: 04/28/16 Time of Encounter: 14:48 Assessment and Plan (1) Foreign body in throat Current visit: Yes Status: Acute X-ray of the soft tissues of the neck showed possible foreign body in her hypopharynx. He has been consulted. Plan to do the upper GI endoscopy today. We will follow results. Qualifiers: Encounter type: initial encounter Qualified Code(s): T17.208A - Unspecified foreign body in pharynx causing other injury, initial encounter (2) Abdominal pain Current visit: Yes Status: Acute We will follow results of upper GI endoscopy. Supportive care. Currently nothing by mouth. Qualifiers: Abdominal location: epigastric Qualified Code(s): R10.13 - Epigastric pain (3) Reactive airway disease with acute exacerbation Current visit: Yes Status: Acute Use nebs as needed. O2 supplementation as needed. (4) UTI (urinary tract infection) Current visit: Yes Status: Acute Continue Rocephin. Qualifiers: Urinary tract infection type: acute cystitis Hematuria presence: without hematuria Qualified Code(s): N30.00 - Acute cystitis without hematuria Internal Medicine - H&P: HPI Chief complaint: Change in voice, feeling something stuck in her throat Admitted From: Emergency Dept Plans for Post Hospital Care: Home History of present illness: Ms. Raphael is a 35 year old female with history of fibromyalgia, cervical spondylosis presented to the ER with complaints of shortness of breath and feeling of something stuck in her throat with change in her voice. She denies any difficulty swallowing. She says she has not eaten much for the past week. She has also noticed a change in her voice for the past couple of days. Also complains of abdominal pain in epigastric region that gets worse with coughing. No hematemesis or melena. She does not feel any swelling in her throat. She is not allergic to any medications. Past Med Surg Social Fam HX - Past Medical History Medical history: arthritis, COPD, fibromyalgia, other Psychiatric history: anxiety, ADHD, other - Past Surgical History Surgical History: cholecystectomy, other - Social History Smoking Status: Current every day smoker Packs per day: 1 Smokeless Tobacco Status: No Alcohol use: none Drug use: none - Family History Paternal Grandfather Living Status: Hx Family Cancer: Yes Maternal Grandmother Living Status: Hx Family Cancer: Yes Internal Medicine - H&P: Meds Dextroamphetamine/Amphetamine [Adderall 30 mg Tablet] 30 mg PO BID 04/28/16 [ History] Escitalopram [Lexapro] 15 mg PO DAILY 04/28/16 [History] Gabapentin [Gabapentin] 600 mg PO BID 04/28/16 [History] HydrOXYzine Pamoate [HydrOXYzine Pamoate] 25 mg PO HS 04/28/16 [History] Propranolol [Inderal] 20 mg PO BID 04/28/16 [History] Allergies No Known Allergies Allergy (Verified 01/04/15 11:48) All Systems PM: A 10-system review of systems was performed and is negative for pertinent findings except as documented above in the HPI. - Constitutional Constitutional: no chills, no fever(s), no night sweats - EENT Eyes: no change in vision, no discharge, no pain, no photophobia Ears: no ear discharge, no ear pain, no tinnitus Nose, mouth and throat: change in voice, no dysphagia, no nasal discharge, no neck pain, no sore throat - Cardiovascular Cardiovascular ROS IM: no chest pain, no diaphoresis, no dyspnea, no lightheadedness, no palpitations, no syncope - Respiratory Respiratory: no cough, no dyspnea, no wheezing, no excessive phlegm production - Gastrointestinal Gastrointestinal: abdominal pain, no diarrhea, no hematemesis, no hematochezia, no melena, no nausea, no vomiting - Constitutional Vitals: Temp Pulse Resp BP Pulse Ox 97.8 F 109 16 115/80 97 04/28/16 14:31 04/28/16 14:41 04/28/16 14:41 04/28/16 14:41 04/28/16 14:41 General appearance: Present: cooperative, A&O X 3, answers questions appropriately Exam: Moderate distress - Neck Neck exam general surgery: Present: supple, trachea midline. Absent: lymphadenopathy - Respiratory Respiratory exam: Present: CTAB. Absent: accessory muscle use, rales, rhonchi, wheezes - GI/Abdominal GI/Abdominal exam: Present: normal bowel sounds, soft, tenderness (Epigastric tenderness), no peritoneal signs. Absent: distended - Extremities Exam Extremities exam: Present: warm, radial pulses palpable and symetrical. Absent : calf tenderness, cyanotic, pedal edema Internal Med - H&P Results - Labs CBC & Chem 7: 04/28/16 04:48 04/28/16 04:48 Labs: Short CBC 04/28/16 Range/Units 04:48 WBC 16.1 H (4.3-11.1) K/mcL Hgb 13.0 D (11.5-15.4) g/dL Hct 37.3 (35.3-44.9) % Plt Count 486 H (140-400) K/mcL BMP 04/28/16 04:48 Sodium 138 Potassium 3.2 L Chloride 112 H Carbon Dioxide 16 L BUN 12 Creatinine 0.57 Glucose 105 H Calcium 8.8 Cardiac Enzymes 04/28/16 04/28/16 Range/Units 04:48 10:25 Troponin I 0.00 0.00 (0-0.03) ng/mL Liver Function 04/28/16 Range/Units 04:48 Total Bilirubin 1.1 (0.2-1.2) mg/dL AST 13 (5-34) Units/L ALT 11 (0-55) Units/L Alkaline Phosphatase 62 (38-126) Units/L Albumin 3.7 (3.5-5.0) g/dL - ABG Interpretation ABG results: 04/28/16 04:48 VBG pH 7.39 VBG pCO2 30 L VBG pO2 140 H VBG HCO3 18.2 L - Impressions ITS Impressions Chest CTA 04/28/16 01:38 IMPRESSION: No evidence of pulmonary embolism. Small amount of right lower lobe faint airspace disease, possibly due to pneumonia D/ / Eladio De Souza MD / Eladio De Souza MD Interpreting Provider: Eladio De Souza MD - Attending Attestation This document has been at least partially created by [employer] recognition technology by Dr. Mckeon. Errors in grammar, wording or other phrases may exist. If errors are found after the documentation is signed, they will be addressed individually in the addendum section of this document when appropriate.
--- NOTE | 2016-04-28 15:04 | Anesthesia Evaluation Post Op ---
Date of Encounter: 04/28/16 Time of Encounter: 15:04 - Vital Signs Vital Signs: Vital Signs/O2 Sat, Most Current Temp Pulse Resp BP Pulse Ox 97.4 F L 85 16 119/75 98 04/28/16 15:00 04/28/16 15:00 04/28/16 15:00 04/28/16 15:00 04/28/16 15:00 - Lungs Lungs: Clear Ascult./Percussion - Airway Airway: Non-obstructed - Cardiovascular Regular Rate - Mental Status Mental Status: Alert & Oriented, Answers Appropriately - Pain Pain Scale: 0 Pain Scale used: Numeric (1 - 10) - Nausea Vomiting Nausea Vomiting: Not Present - Hydration Hydration: NPO, Has not voided
[2016-04-28 15:18] VITALS: BP 120/80
[2016-04-28] MEDS ORDERED: Pantoprazole 40 MG VIAL IVP SCH ×2 (15:32→18:00)
--- NOTE | 2016-04-28 15:50 | Discharge Summary ---
Date of Encounter: 04/28/16 Time of Encounter: 15:25 - Discharge Diagnosis (1) Foreign body in throat Priority: Primary Status: Acute Qualifiers: Encounter type: initial encounter Qualified Code(s): T17.208A - Unspecified foreign body in pharynx causing other injury, initial encounter (2) Abdominal pain Priority: Secondary Status: Acute Qualifiers: Abdominal location: epigastric Qualified Code(s): R10.13 - Epigastric pain (3) Reactive airway disease with acute exacerbation Priority: Secondary Status: Acute (4) UTI (urinary tract infection) Priority: Secondary Status: Acute Qualifiers: Urinary tract infection type: acute cystitis Hematuria presence: without hematuria Qualified Code(s): N30.00 - Acute cystitis without hematuria - Discharge Medications Prescriptions: Cephalexin [Keflex] 500 mg PO BID #10 capsule Pantoprazole Sodium [Protonix] 40 mg PO BID #60 tablet. Sucralfate [Carafate] 1 gm PO QIDAC #120 tablet Home Medications: Cephalexin [Keflex] 500 mg PO BID #10 capsule 04/28/16 [Rx] Dextroamphetamine/Amphetamine [Adderall 30 mg Tablet] 30 mg PO BID 04/28/16 [ History] Escitalopram [Lexapro] 15 mg PO DAILY 04/28/16 [History] Gabapentin 600 mg PO BID 04/28/16 [History] HydrOXYzine Pamoate 25 mg PO HS 04/28/16 [History] Pantoprazole Sodium [Protonix] 40 mg PO BID #60 tablet. 04/28/16 [Rx] Propranolol [Inderal] 20 mg PO BID 04/28/16 [History] Sucralfate [Carafate] 1 gm PO QIDAC #120 tablet 04/28/16 [Rx] Allergies/Adverse Reactions: Allergies No Known Allergies Allergy (Verified 01/04/15 11:48) Procedures/tests Complete & Pending: Procedures Performed prior 72 hours Category Date Time Status CT angio chest [CT] Stat Cat Scan 04/28/16 01:38 Completed Date of admission: 04/28/16 00:41 Primary care physician: Lizette Quintero CNP Consults: 04/28/16 01:38 Consult to Nurse Navigator [CONS] Routine Comment: Consult to Nurse Navigator [CONS] Routine Comment: Discharging clinician: Moni Mckeon Anticipated date of discharge: 04/28/16 - Patient Status Disposition: Home, Self-Care Condition: Fair Functional capacity at discharge: independent ambulation Overall status at discharge: patient is progressing back to baseline - Discharge Instructions Follow Up With: Lizette Quintero CNP [Primary Care Provider] - (1-2 weeks) Grace Snyder MD [Partnered Physician] - (In 1 to 2 weeks) Hospital course: Ms. Raphael is a 35 year old female with history of fibromyalgia, cervical spondylosis presented to the ER with complaints of shortness of breath and feeling of something stuck in her throat with change in her voice. Initial x- ray of the neck showed possible foreign body. She was monitored overnight. GI was consulted and patient underwent upper GI endoscopy. This did not show any foreign body in her hypopharynx. However she was found to have a large gastric ulcer. This was nonbleeding. She has now been started on treatment for it with his daily PPI and Carafate. She can follow outpatient with GI for the biopsy results. She is clinically stable for discharge. - Time Spent with Patient Total time spent providing and/or coordinating discharge services: Greater than 30 minutes (35 min) - Constitutional Vitals: Temp Pulse Resp BP Pulse Ox 97.6 F 106 16 120/80 100 04/28/16 15:17 04/28/16 15:17 04/28/16 15:17 04/28/16 15:17 04/28/16 15:17 General appearance: Present: cooperative, A&O X 3, answers questions appropriately - Respiratory Respiratory exam: Present: CTAB. Absent: accessory muscle use, rales, rhonchi, wheezes - Cardiovascular Cardiovascular exam: Present: RRR, +S1, +S2. Absent: diastolic murmur, gallop, rubs, systolic murmur - GI/Abdominal GI/Abdominal exam: Present: normal bowel sounds, soft, tenderness (epigastric), no peritoneal signs. Absent: distended - Attending Attestation This document has been at least partially created by [employer] recognition technology by Dr. Mckeon. Errors in grammar, wording or other phrases may exist. If errors are found after the documentation is signed, they will be addressed individually in the addendum section of this document when appropriate.
[2016-04-28] MEDS ORDERED: Sucralfate 1 GM TABLET PO SCH (16:30)
[2016-04-28] MEDS ORDERED: Lidocaine -MPF 2% 5 ML VIAL INFILT ONE (17:51)
[2016-04-28] MEDS ORDERED: *HR* Succinylcholine 200 MG/10 ML VIAL IVP ONE (17:51)
[2016-04-28] MEDS ORDERED: *HR* Propofol 200 MG/20 ML VIAL IVP ONE (17:51)
== END 2016-04-28 17:52 | disposition home or self-care (01) ==
LOC: 3ANU 17:28 → EMEROO 17:28 → SUATTDRO 04-28 00:41 → 3ANU 04-28 00:59
PROVIDERS: ADMIT Internal Medicine; ATTEND Internal Medicine